=== PATIENT | female | born 1985 | race Caucasian/White ===

== ENCOUNTER 2017-09-15 10:27 | Emergency (ER) | payer OTHER ==
[2017-09-15 10:32] VITALS: BP 111/71
--- NOTE | 2017-09-15 11:03 | ER Document Report ---
HPI - HPI Pain Level: 3 Notes: Patient is a 32-year-old female who presents the ED complaining of nasal congestion/discharge, sinus pressure, sinus headache, rt ear pain, sore throat, right ear pain, postnasal drip 1 week. Patient states that she has had intermittent nausea over the last day. Patient states that she is still eating and drinking, but does have a decreased appetite. Patient has been using over- the-counter meds with minimal relief. Patient still urinating normally and having normal bowel movements. Denies any fever, head injury, neck pain, changes in vision/speech/mentation/hearing, chest pain, palpitations, syncope, cough, shortness of breath, wheeze, dyspnea, abdominal pain, vomiting/diarrhea, urinary retention, dysuria, hematuria, vaginal discharge/odor/bleeding, or rash. - ROS Notes: REVIEW OF SYSTEMS: CONSTITUTIONAL : Denies fever, chills, or sweats. Denies recent illness. EENT: see hpi CARDIOVASCULAR: Denies chest pain. Denies palpitations or racing or irregular heart beat. Denies ankle edema. RESPIRATORY: Denies cough, cold, or chest congestion. Denies shortness of breath, difficulty breathing, or wheezing. GASTROINTESTINAL: Denies abdominal pain or distention. Denies nausea, vomiting , or diarrhea. GENITOURINARY: Denies difficulty urinating, painful urination, burning, frequency, blood in urine, or discharge. MUSCULOSKELETAL: Denies back or neck pain or stiffness. Denies joint pain or swelling. SKIN: Denies rash, lesions or sores. NEUROLOGICAL: Denies confusion or altered mental status. Denies passing out or loss of consciousness. Denies dizziness or lightheadedness. Denies headache. Denies weakness or paralysis or loss of use of either side. Denies problems with gait or speech. Denies sensory loss, numbness, or tingling. ALL OTHER SYSTEMS REVIEWED AND NEGATIVE. Dictation was performed using [email or web address] voice recognition software Past Medical History - Social History Smoking Status: Never Smoker Family History: Reviewed & Not Pertinent Vertical Provider Document - CONSTITUTIONAL Agree With Documented VS: Yes Notes: PHYSICAL EXAMINATION: GENERAL: Well-appearing, well-nourished and in no acute distress. A&Ox4 HEAD: Atraumatic, normocephalic. EYES: Pupils equal round and reactive to light, extraocular movements intact, sclera anicteric, conjunctiva are normal. ENT: EAC clear b/l. Rt TM erythemic, mild bulging. Lt TM wnl. Nares patent and with yellow discharge, mild erythema. oropharynx clear without exudates. 2 + tonsilar hypertrophy with erythema, scant exudate. Moist mucous membranes. No sinus tenderness. NECK: Normal range of motion, supple without lymphadenopathy. No rigidity/ meningismus. LUNGS: Breath sounds clear to auscultation bilaterally and equal. No wheezes rales or rhonchi. HEART: Regular rate and rhythm without murmurs, rubs, gallops. ABDOMEN: Soft, nontender, nondistended abdomen. No guarding, no rebound. No masses appreciated. Normal bowel sounds present. No CVA tenderness bilaterally. Extremities: No cyanosis, clubbing, or edema b/l. Peripheral pulses 2+. Capillary refill less than 3 seconds. NEUROLOGICAL: Cranial nerves grossly intact. Normal speech, normal gait. Normal sensory, motor exams PSYCH: Normal mood, normal affect. SKIN: Warm, Dry, normal turgor, no rashes or lesions noted. - INFECTION CONTROL TRAVEL OUTSIDE OF THE [place] IN LAST 30 DAYS: No - RESPIRATORY O2 Sat by Pulse Oximetry: 100 Course - Re-evaluation Re-evalutation: 09/15/17 11:01 Patient is an afebrile, well-hydrated, 32-year-old female who presents the ED with acute otitis media of the right ear, acute sinusitis, and possible strep pharyngitis. Vitals are stable. PE is otherwise unremarkable at this time. Testing is beyond time for rapid influenza. I will not test for strep as I will be covering based on her otitis media and sinusitis with Augmentin. Low suspicion for any systemic emergent condition at this time. Recommend conservative measures for symptoms. Recheck with your PCM in 3-5 days. Return to the ED with any worsening/concerning symptoms otherwise as reviewed in discharge. Patient is in agreement. - Vital Signs Vital signs: Temp Pulse Resp BP Pulse Ox 98.4 F 96 14 111/71 100 09/15/17 10:31 09/15/17 10:31 09/15/17 10:31 09/15/17 10:31 09/15/17 10:31 Discharge - Discharge Clinical Impression: Acute right otitis media Acute sinusitis Qualifiers: Sinusitis location: maxillary Recurrence: non-recurrent Qualified Code(s): J01.00 - Acute maxillary sinusitis, unspecified Acute pharyngitis Qualifiers: Pharyngitis/tonsillitis etiology: unspecified etiology Qualified Code(s): J02.9 - Acute pharyngitis, unspecified Condition: Stable Disposition: HOME, SELF-CARE Instructions: Otitis Media ([facility]), Sinusitis ([facility]), Sore Throat ([facility]), Augmentin ([facility]) Additional Instructions: Maintain adequate fluid intake Take meds as directed Salt water gargles, throat sprays, mouthwash rinse, peroxide gargles tylenol/ibuprofen as needed New toothbrush tomorrow evening over the counter cold medication as needed for symptoms F/u: with your PCM in 3-5 days for a recheck Consider consult with ENT for ongoing/worsening symptoms Return to the ED with any fever, worsening pain, chest pain, neck pain/stiffness , shortness of breath, cough, drooling, trouble swallowing/breathing, abdominal pain, n/v/d, rash, or worsening/concerning symptoms otherwise. Prescriptions: Amox Tr/Potassium Clavulanate [Augmentin 875-125 Tablet] 1 tab PO BID 10 Days # 20 tablet Referrals: [facility] [Provider Group] - Follow up as needed [facility] [Provider Group] - Follow up as needed
== END 2017-09-15 11:48 | disposition home or self-care (01) ==
LOC: ER 10:27
DX: J01.00 Acute maxillary sinusitis, unspecified (principal); J02.9 Acute pharyngitis, unspecified; H66.91 Otitis media, unspecified, right ear; R11.0 Nausea; R63.0 Anorexia; R09.82 Postnasal drip; R51 Headache
CPT/HCPCS: 99283

== ENCOUNTER 2017-10-08 11:30 | Emergency (ER) | payer OTHER ==
[2017-10-08] MEDS ORDERED: KETOROLAC TROMETHAMINE 60 MG/2 ML SDV IM ONE (11:46)
--- NOTE | 2017-10-08 11:53 | ER Document Report ---
ED GI/ - General Chief Complaint: Abdominal Pain Stated Complaint: ABDOMINAL PAIN Time Seen by Provider: 10/08/17 11:38 TRAVEL OUTSIDE OF THE [place] IN LAST 30 DAYS: No - HPI Notes: 10/08/17 11:48 32 years old female presents today with diffuse abdominal pain and left flank pain and left lower quadrant pain for the last few days. She was diagnosed with constipation earlier and asked to take [id number] stool softeners. Which she took and developed watery stools. But did not have any solid stool for a long time. Denies any nausea or vomiting. Denies any fever chills denies any dysuria frequency urgency. Denies any other delusional symptoms. - Related Data Allergies/Adverse Reactions: azithromycin Allergy (Verified 10/08/17 12:04) cefdinir Allergy (Verified 10/08/17 12:04) fluticasone [From Flonase] Allergy (Verified 10/08/17 12:04) Past Medical History - General Information source: Patient - Social History Smoking Status: Never Smoker Family History: Reviewed & Not Pertinent - Immunizations Hx Diphtheria, Pertussis, Tetanus Vaccination: Yes Review of Systems - Review of Systems Constitutional: No symptoms reported. denies: See HPI, Chills, Diaphoresis, Fever, Malaise, Weakness, Other, Weight gain, Weight loss, Recent illness EENT: denies: No symptoms reported, See HPI, Eye pain, Eye discharge, Blurred vision, Tearing, Double vision, Ear pain, Ear discharge, Nose pain, Nose congestion, Nose discharge, Sinus pressure, Sinus discharge, Throat pain, Difficulty swallowing, Throat swelling, Mouth pain, Mouth swelling, Dental problem, Vertigo, Other Cardiovascular: No symptoms reported. denies: See HPI, Chest pain, Palpitations , Heart racing, Orthopnea, Dyspnea, Syncope, Dizziness, Lightheaded, Edema, Other, Paroxysmal Nocturnal Dysp Respiratory: No symptoms reported. denies: See HPI, Cough, Hurts to breathe, Hemoptysis, Short of breath, Sputum, Stridor, Wheezing, Other Gastrointestinal: See HPI, Abdominal pain Genitourinary: No symptoms reported. denies: See HPI, Burning, Dysuria, Discharge, Frequency, Flank pain, Hematuria, Incontinence, Pain, Urgency, Retention, Other Female Genitourinary: No symptoms reported. denies: See HPI, Last menstrual period, , Post menopausal, Heavy/abnormal periods, Irregular period, Vaginal bleeding, Vaginal discharge, Vaginal odor, Painful intercourse, Other Physical Exam - Vital signs Vitals: Temp Pulse Resp BP Pulse Ox 98.1 F 107 H 18 131/72 H 99 10/08/17 11:40 10/08/17 11:40 10/08/17 11:40 10/08/17 11:40 10/08/17 11:40 - Notes Notes: General exam: Alert oriented 3, appears well, not in any acute distress, body habitus------. HEENT: Normocephalic atraumatic pupils were equal reactive to light extraocular muscles were within normal range. Neck is supple no JVD no lymphadenopathy. Oral mucosa-not erythematous, no lesions noted no tonsillar enlargement. Chest no lesions, nontraumatic, nontender. No deformity Lungs: Bilaterally clear breath sounds no rales or wheezing, no adventitial sounds, no dullness on percussion. Cardiovascular system: Normal S1-S2 no murmurs, no gallop. Regular rhythm. No peripheral edema over the lower extremities. Gastrointestinal: Normal appearance, diffuse mild tenderness throughout the abdomen more so on the left lower quadrant. No rebound tenderness or guarding. Positive bowel sounds in all 4 quadrants, no Hepatosplenomegaly, no obvious masses, no obvious abdominal bruit. No horseshoe dullness. Inguinal region: No masses or obvious inguinal hernia noted Genitourinary: Rectal exam: Nervous system: Alert oriented 3, no cranial nerve weakness, no focal neurological deficit noted. Sensation is intact over the lower extremities for pain and touch. Reflexes are 2+ over both patella. Upper extremities: No trauma as noted, normal range of motion for both shoulders , elbows and wrist. Lower extremity: No traumas or deformities noted, normal range of motion for flexion extension abduction abduction of both hip joints, Normal flexion and extension of knee joint. Normal range of motion for plantarflexion dorsiflexion and eversion inversion for both ankles. Skin: No erythema, no edema, no obvious lesions noted Course - Vital Signs Vital signs: Temp Pulse Resp BP Pulse Ox 98.3 F 83 16 119/95 H 98 10/08/17 15:43 10/08/17 15:43 10/08/17 15:43 10/08/17 15:43 10/08/17 15:43 - Laboratory Result Diagrams: 10/08/17 12:35 Laboratory results interpreted by me: 10/08/17 11:55 Urine Blood SMALL H Discharge - Discharge Clinical Impression: Constipation by delayed colonic transit Abdominal pain Qualifiers: Abdominal location: left lower quadrant Qualified Code(s): R10.32 - Left lower quadrant pain Condition: Fair Instructions: Abdominal Pain ([facility]), Bulk Laxatives Prescriptions: Lubiprostone [Amitiza 24 Mcg Capsule] 24 mcg PO DAILY #60 capsule
[2017-10-08 12:20] LABS: APPEARANCE,URINE SLIGHTLY-CLOUDY; BILIRUBIN,URINE NEGATIVE (NEGATIVE); GLUCOSE, URINE NEGATIVE (NEGATIVE); KETONES,URINE NEGATIVE (NEGATIVE); LEUKOCYTE ESTERASE,URINE NEGATIVE (NEGATIVE); NITRITE,URINE NEGATIVE (NEGATIVE); PROTEIN,URINE NEGATIVE (NEGATIVE); URINE SPECIFIC GRAVITY 1.014; UROBILINOGEN,URINE NEGATIVE mg/dL (<2.0)
--- NOTE | 2017-10-08 12:22 | RADIOLOGY REPORT (SQ) ---
EXAM DESCRIPTION: KUB/ABDOMEN (SINGLE VIEW) COMPLETED DATE/TIME: 10/08/2017 12:11 pm REASON FOR STUDY: Abdominal pain COMPARISON: None. NUMBER OF VIEWS: One view. TECHNIQUE: Supine radiographic image of the abdomen acquired. LIMITATIONS: None. FINDINGS: BOWEL GAS PATTERN: Normal bowel gas pattern. No dilated loops. CALCIFICATIONS: No suspicious calcifications. SOFT TISSUES: No gross mass or suggestion of organomegaly. HARDWARE: Surgical clips. BONES: No acute fracture. No worrisome bone lesions. OTHER: No other significant finding. IMPRESSION: NO RADIOGRAPHIC EVIDENCE FOR ACUTE ABDOMINAL DISEASE. TECHNICAL DOCUMENTATION: JOB ID: [id number] [employer]- All Rights Reserved
[2017-10-08 12:43] LABS: HEMATOCRIT 39.1 % (36.0-47.0); HEMOGLOBIN 13.3 g/dL (12.0-15.5); HGB HCT DIFFERENCE 0.8; MEAN CORPUSCULAR HEMOGLOBIN 29.5 pg (27.0-33.4); MEAN CORPUSCULAR HGB CONC 33.9 g/dL (32.0-36.0); MEAN CORPUSCULAR VOLUME 87 fl (80-97); RED BLOOD COUNT 4.51 10^6/uL (3.72-5.28); RED CELL DISTRIBUTION WIDTH 13.2 % (11.5-14.0); WHITE BLOOD COUNT 10.1 10^3/uL (4.0-10.5)
[2017-10-08 15:45] VITALS: BP 119/95
== END 2017-10-08 16:12 | disposition home or self-care (01) ==
LOC: ER 11:30
DX: K59.01 Slow transit constipation (principal); R10.32 Left lower quadrant pain
CPT/HCPCS: 99284; 96372; 36415; 85027; 81025; 81001; 74000; J1885

== ENCOUNTER → 2017-11-11 | Outpatient (CLI) | payer OTHER ==
--- NOTE | 2017-11-12 17:23 | WOMENS IMAGING REPORT ---
EXAM DESCRIPTION: BILAT DIAGNOSTIC MAMMO W/CAD; U/S BREAST UNILAT LIMITED COMPLETED DATE/TIME: 11/11/2017 1:06 pm; 11/11/2017 2:27 pm REASON FOR STUDY: LUMP IN LEFT BREAST; LEFT BREAST PALP N63.20 UNSPECIFIED LUMP IN THE LEFT BREAST, UNSPECIFIED QUAD COMPARISON: Baseline study TECHNIQUE: Standard craniocaudal and mediolateral oblique views of each breast recorded using digita l acquisition. Additional left breast 90 mediolateral view, cone compression left breast 12 o'clock position. Left breast ultrasound was also performed. LIMITATIONS: None. FINDINGS: RIGHT BREAST MASSES: No suspicious masses. CALCIFICATIONS: No new or suspicious calcifications. ARCHITECTURAL DISTORTION: None. DEVELOPING DENSITY: None. ASYMMETRY: None noted. OTHER: No other significant findings. LEFT BREAST MASSES: No suspicious masses. CALCIFICATIONS: No new or suspicious calcifications. ARCHITECTURAL DISTORTION: None. DEVELOPING DENSITY: None. ASYMMETRY: None noted. OTHER: No other significant finding. Read with the assistance of CAD: .[facility] - R2 Cenova Version 1.3 .[facility] - R2 Cenova Version 1.3 .[facility] - R2 Cenova Version 2.4 .[facility] - R2 Cenova Version 2.4 .[facility] - R2 Early Childhood Version 9.2 Left breast ultrasound: Patient has a questionable palpable abnormality at the 12 o'clock position left breast. Ultrasound o f the upper half left breast demonstrates no discrete cystic or solid lesions. No focal findings. N o worrisome acoustic absorption. IMPRESSION: No mammographic evidence for malignancy right breast. No mammographic or sonographic evidence for malignancy left breast. BREAST DENSITY: c. The breasts are heterogeneously dense, which may obscure small masses. BIRAD: 1 Negative. RECOMMENDATION: RECOMMENDED FOLLOW UP: Please begin bilateral screening tomosynthesis at age 40, or sooner if patient has an increased lifetime risk of breast cancer based on the Maria Eugenia model assessment. SPECIFIC INTERVENTION/IMAGING/CONSULTATION RECOMMENDED:No additional intervention/ imaging/consultati on needed at this time. COMMUNICATION:Patient was notified by letter COMMENT: The patient has been notified of the results by letter per SA requirements. Additional no tification policies are in place for contacting patient with suspicious or incomplete findings. Quality ID #[id number]: The [employer] recommends an annual screening mammogram for women aged 40 years or over. This facility utilizes a reminder system to ensure that all patients receive reminder letters, and/or direct phone calls for appointments. This includes reminders for routine scr eening mammograms, diagnostic mammograms, or other Breast Imaging Interventions when appropriate. Th is patient will be placed in the appropriate reminder system. The [employer] (ACR) has developed recommendations for screening MRI of the breast s in certain patient populations, to be used in conjunction with mammography. Breast MRI surveillanc e may be appropriate for women with more than 20% lifetime risk of developing breast cancer as deter mined by genetic testing, significant family history of the disease, or history of mantle radiation f or Hodgkins Disease. ACR Practice Guidelines 2008. TECHNICAL DOCUMENTATION: FINDING NUMBER: (1) ASSESSMENT: (1) JOB ID: [id number] [employer]- All Rights Reserved
--- NOTE | 2017-11-12 17:23 | WOMENS IMAGING REPORT ---
EXAM DESCRIPTION: BILAT DIAGNOSTIC MAMMO W/CAD; U/S BREAST UNILAT LIMITED COMPLETED DATE/TIME: 11/11/2017 1:06 pm; 11/11/2017 2:27 pm REASON FOR STUDY: LUMP IN LEFT BREAST; LEFT BREAST PALP N63.20 UNSPECIFIED LUMP IN THE LEFT BREAST, UNSPECIFIED QUAD COMPARISON: Baseline study TECHNIQUE: Standard craniocaudal and mediolateral oblique views of each breast recorded using digita l acquisition. Additional left breast 90 mediolateral view, cone compression left breast 12 o'clock position. Left breast ultrasound was also performed. LIMITATIONS: None. FINDINGS: RIGHT BREAST MASSES: No suspicious masses. CALCIFICATIONS: No new or suspicious calcifications. ARCHITECTURAL DISTORTION: None. DEVELOPING DENSITY: None. ASYMMETRY: None noted. OTHER: No other significant findings. LEFT BREAST MASSES: No suspicious masses. CALCIFICATIONS: No new or suspicious calcifications. ARCHITECTURAL DISTORTION: None. DEVELOPING DENSITY: None. ASYMMETRY: None noted. OTHER: No other significant finding. Read with the assistance of CAD: .[facility] - R2 Cenova Version 1.3 .[facility] - R2 Cenova Version 1.3 .[facility] - R2 Cenova Version 2.4 .[facility] - R2 Cenova Version 2.4 .[facility] - R2 Fish Cleaner Machine Tender Version 9.2 Left breast ultrasound: Patient has a questionable palpable abnormality at the 12 o'clock position left breast. Ultrasound o f the upper half left breast demonstrates no discrete cystic or solid lesions. No focal findings. N o worrisome acoustic absorption. IMPRESSION: No mammographic evidence for malignancy right breast. No mammographic or sonographic evidence for malignancy left breast. BREAST DENSITY: c. The breasts are heterogeneously dense, which may obscure small masses. BIRAD: 1 Negative. RECOMMENDATION: RECOMMENDED FOLLOW UP: Please begin bilateral screening tomosynthesis at age 40, or sooner if patient has an increased lifetime risk of breast cancer based on the Maria Eugenia model assessment. SPECIFIC INTERVENTION/IMAGING/CONSULTATION RECOMMENDED:No additional intervention/ imaging/consultati on needed at this time. COMMUNICATION:Patient was notified by letter COMMENT: The patient has been notified of the results by letter per SA requirements. Additional no tification policies are in place for contacting patient with suspicious or incomplete findings. Quality ID #[id number]: The [employer] recommends an annual screening mammogram for women aged 40 years or over. This facility utilizes a reminder system to ensure that all patients receive reminder letters, and/or direct phone calls for appointments. This includes reminders for routine scr eening mammograms, diagnostic mammograms, or other Breast Imaging Interventions when appropriate. Th is patient will be placed in the appropriate reminder system. The [employer] (ACR) has developed recommendations for screening MRI of the breast s in certain patient populations, to be used in conjunction with mammography. Breast MRI surveillanc e may be appropriate for women with more than 20% lifetime risk of developing breast cancer as deter mined by genetic testing, significant family history of the disease, or history of mantle radiation f or Hodgkins Disease. ACR Practice Guidelines 2008. TECHNICAL DOCUMENTATION: FINDING NUMBER: (1) ASSESSMENT: (1) JOB ID: [id number] [employer]- All Rights Reserved
== END ==
LOC: WI 12:16
PROVIDERS: ATTEND Nurse Practitioner Family
DX: N63.20 Unspecified lump in the left breast, unspecified quadrant (principal)
CPT/HCPCS: 76642; 77066

== ENCOUNTER 2020-05-30 20:05 | Observation (INO) | payer OTHER ==
--- NOTE | 2020-05-30 21:08 | ER Document Report ---
ED General - General Chief Complaint: Probable Seizure Stated Complaint: SEIZURE LIKE ACTIVITY Time Seen by Provider: 05/30/20 20:55 Primary Care Provider: RAFAEL FORTE NP [Primary Care Provider] - Follow up as needed TRAVEL OUTSIDE OF THE [place] IN LAST 30 DAYS: No - HPI Notes: Chief complaint: Syncope History of present illness: 34-year-old 4 para [address] by Dr[address] Roddy Evans with [facility] for demise at approximately 9 weeks EGA and was in the process of miscarrying at home when she experienced a syncopal episode and had a few myoclonic jerks which her felt to represent a possible seizure. He called EMS and when they arrived her initial blood pressure was 80 over palp. They gave her a liter of normal saline and her blood pressure has normalized. At this time she has some mild abdominal cramping and says she has some persistent bleeding. We note that they had prescribed misoprostol for her but she has not taken any of this. She did take 2 Percocet tablets earlier today. Patient is had no complications with her other pregnancies otherwise in good health taking no regular medications. She is allergic to azithromycin cefdinir and fluticasone. - Related Data Allergies/Adverse Reactions: azithromycin Allergy (Verified 10/08/17 12:04) cefdinir Allergy (Verified 10/08/17 12:04) cefuroxime Allergy (Verified 05/31/20 01:38) ciprofloxacin Allergy (Verified 05/31/20 01:38) fluticasone [From Flonase] Allergy (Verified 10/08/17 12:04) Past Medical History - General Information source: Patient, Emergency Med Personnel, [facility] Records - Social History Smoking Status: Never Smoker Frequency of alcohol use: None Drug Abuse: None Lives with: Family Family History: Reviewed & Not Pertinent - Medical History Medical History: Negative Renal/ Medical History: Denies: Hx Peritoneal Dialysis Past Surgical History: Reports: Hx Cholecystectomy - Immunizations Hx Diphtheria, Pertussis, Tetanus Vaccination: Yes Review of Systems - Review of Systems Notes: Constitutional: Negative for fever. HENT: Negative for sore throat. Eyes: Negative for visual changes. Cardiovascular: Negative for chest pain. Respiratory: Negative for shortness of breath. Gastrointestinal: Negative for abdominal pain, vomiting or diarrhea. Genitourinary: As per HPI. Negative for dysuria. Musculoskeletal: Negative for back pain. Skin: Negative for rash. Neurological: As per HPI. Negative for headaches, focal weakness or numbness. 10 point ROS negative except as marked above and in HPI. Physical Exam - Vital signs Vitals: Temp 97 F L 05/30/20 20:05 - Notes Notes: GENERAL: Well-developed well-nourished appearing in no acute distress. SKIN: Cool moist and pale. Good turgor no rashes. HEAD: Normocephalic atraumatic. EYES: PERRLA. EOMI. Conjunctivae and sclerae clear. EARS: CANALS AND TMS CLEAR. NOSE: CLEAR. MOUTH: Moist mucosa. Good dentition. No stridor or edema. No drooling. NECK: Supple. No masses or thyromegaly. No adenopathy. Carotids 2+ without bruits. No JVD. BACK: Symmetrical without tenderness. CHEST: Respirations unlabored. Breath sounds clear and symmetrical. HEART: Regular rhythm. No murmur gallop or rub. ABDOMEN: Mild tenderness suprapubic area. Soft without masses, organomegaly or rebound. Bowel sounds normally active. No bruits. Pelvic: Small amount of dark blood in vaginal vault. Cervical os is fingertip dilated. Mild tenderness over uterus. EXTREMITIES: No edema. No calf tenderness. Cap refill less than 1.5 seconds. Dorsalis pedis and posterior tibial pulses 3+ and symmetrical. NEUROLOGICAL: GCS 15. Alert and oriented x3. Fluent speech. Cranial nerves II through XII intact. Sensorimotor and cerebellar normal. Normal tone. PSYCHIATRIC: Appropriate affect. Course - Re-evaluation Re-evalutation: 05/31/20 00:41 Ongoing small amount of vaginal bleeding. Blood pressure 150/68. Pulse is 77. Patient is complaining of a lot of cramping and discomfort. I have previously discussed findings with on-call TEST PREPARER, Dr. Walker who feels this patient may go home if she is hemodynamically stable. She suggested we send her to the office in the morning after we determine if she should have a D&C at that point. Patient still moderately uncomfortable. I am giving her some morphine for her cramping and some additional IV fluids. I will repeat a hemoglobin on her 3 hours after the first before we make further disposition. - Vital Signs Vital signs: Temp Pulse Resp BP Pulse Ox 97 F L 15 108/48 L 100 05/30/20 20:05 05/31/20 03:01 05/31/20 03:01 05/31/20 03:01 - Laboratory Result Diagrams: 05/31/20 01:32 05/30/20 21:27 Laboratory results interpreted by me: 05/30/20 05/30/20 05/30/20 21:27 21:27 21:27 WBC 11.1 H RBC 3.13 L Hgb 9.2 L Hct 28.0 L Absolute Neuts (auto) 9.0 H Seg Neutrophils % 81.5 H PT 20.6 H Sodium 130.7 L Carbon Dioxide 17 L Creatinine 0.33 L Glucose 68 L Calcium 7.9 L Magnesium 1.2 L* 05/31/20 01:32 WBC 13.6 H RBC 3.39 L Hgb 10.2 L Hct 29.8 L Absolute Neuts (auto) 11.3 H Seg Neutrophils % 82.8 H PT Sodium Carbon Dioxide Creatinine Glucose Calcium Magnesium - EKG Interpretation by Me Additional EKG results interpreted by me: 05/31/20 00:19 Twelve-lead EKG from 2203 hrs. reviewed contemporaneously by me demonstrating a sinus tachycardia with a rate of 101. Normal QRS axis of +56 degrees. Normal intervals. No acute ST/T wave changes. Indication for current study: Possible seizure. Discharge - Discharge Clinical Impression: demise with miscarriage 9 weeks EG Condition: Stable Disposition: ADMITTED INPATIENT Admitting Provider: [facility] - Dr. Walker Referrals: RAFAEL FORTE NP [Primary Care Provider] - Follow up as needed
[2020-05-30 21:32] LABS: ABSOLUTE EOSINOPHILS # (AUTO) 0.1 10^3/uL (0.0-0.6); ABSOLUTE LYMPHOCYTES (AUTO) 1.5 10^3/uL (0.5-4.7); ABSOLUTE MONOCYTES (AUTO) 0.5 10^3/uL (0.1-1.4); BASOPHILS % (AUTO) 0.3 % (0-2); EOSINOPHILS % (AUTO) 0.6 % (0-6); HEMOGLOBIN 9.2 g/dL (12.0-15.5); LYMPHOCYTES % (AUTO) 13.1 % (13-45); MEAN CORPUSCULAR HEMOGLOBIN 29.5 pg (27.0-33.4); MEAN CORPUSCULAR VOLUME 90 fl (80-97); MONOCYTES % (AUTO) 4.5 % (3-13); PLATELET COUNT 247 10^3/uL (150-450); RED BLOOD COUNT 3.13 10^6/uL (3.72-5.28); RED CELL DISTRIBUTION WIDTH 13.2 % (11.5-14.0); SEGMENTED NEUTROPHILS % (AUTO) 81.5 % (42-78); TOTAL CELLS COUNTED % (AUTO) 100 %; WHITE BLOOD COUNT 11.1 10^3/uL (4.0-10.5)
[2020-05-30 21:38] LABS: INTERNATIONAL RATION (INR) 1.75; PROTHROMBIN TIME 20.6 SEC (11.4-15.4)
[2020-05-30 21:39] LABS: PARTIAL THROMBOPLASTIN TIME 31.9 SEC (23.5-35.8)
[2020-05-30 21:43] LABS: ANION GAP 9 (5-19); BLOOD UREA NITROGEN 8 mg/dL (7-20); CALCIUM 7.9 mg/dL (8.4-10.2); CARBON DIOXIDE 17 mmol/L (22-30); CHLORIDE 105 mmol/L (98-107); POTASSIUM 4.1 mmol/L (3.6-5.0)
[2020-05-30 22:00] LABS: GLUCOSE 68 mg/dL (75-110)
--- NOTE | 2020-05-30 22:15 | RADIOLOGY REPORT (SQ) ---
EXAM DESCRIPTION: US LESS THAN 14 WEEKS COMPLETED DATE/TME: 05/30/2020 20:54 CLINICAL HISTORY: 34 years, Female, retained POC COMPARISON: None. TECHNIQUE: Axial 2-D grayscale images of the pelvis were acquired. Doppler was utilized. LIMITATIONS: Patient refused transvaginal imaging secondary to heavy bleeding.. FINDINGS: Uterus measures 10.5 x 6.4 x 4.5 cm in size. Cervix is closed, measuring 2.5 cm in length. The endometrium appears diffusely heterogenous in echogenicity with a more focal hypoechoic area measuring 3.2 x 2.6 x 1.6 cm in size. This area demonstrates increased vascularity. No intrauterine is identified. Right ovary measures 2.9 x 1.6 x 1.8 cm in size. It demonstrates Doppler flow. Left ovary measures 1.7 x 2.9 x 1.6 cm in size. It also demonstrates elements of Doppler flow. No significant free fluid is identified within the imaged pelvis. IMPRESSION: No intrauterine identified. Instead, the endometrium appears diffusely heterogenous in echogenicity with a more focal hypoechoic area measuring 3.2 x 2.6 x 1.6 cm in size demonstrating vascularity, compatible with retained products of conception. copyright 2010 [email or web address]- All Rights Reserved
[2020-05-30] MEDS: NORMAL SALINE 1000 ML 1,000 ML IV PRN (22:17)
[2020-05-30] MEDS: MAGNESIUM SULFATE/D5W 1 GM/100 ML RTUPB IV SCH (22:52)
[2020-05-31] MEDS ORDERED: ONDANSETRON HCL INJ/PF 4 MG/2 ML SDV IV ONE (00:11)
[2020-05-31] MEDS ORDERED: MORPHINE SULFATE 10 MG/ML INJ IV ONE ×2 (00:22→02:42)
[2020-05-31] MEDS: NORMAL SALINE 1000 ML 1,000 ML IV PRN (01:35)
[2020-05-31] MEDS: MAGNESIUM SULFATE/D5W 1 GM/100 ML RTUPB IV SCH (01:35)
[2020-05-31 01:54] LABS: ABSOLUTE BASOPHILS # (AUTO) 0.1 10^3/uL (0.0-0.2); ABSOLUTE LYMPHOCYTES (AUTO) 1.8 10^3/uL (0.5-4.7); ABSOLUTE MONOCYTES (AUTO) 0.5 10^3/uL (0.1-1.4); ABSOLUTE NEUT (AUTO) 11.3 10^3/uL (1.7-8.2); BASOPHILS % (AUTO) 0.4 % (0-2); EOSINOPHILS % (AUTO) 0.3 % (0-6); HEMATOCRIT 29.8 % (36.0-47.0); HEMOGLOBIN 10.2 g/dL (12.0-15.5); LYMPHOCYTES % (AUTO) 13.1 % (13-45); MEAN CORPUSCULAR HEMOGLOBIN 30.1 pg (27.0-33.4); MEAN CORPUSCULAR HGB CONC 34.2 g/dL (32.0-36.0); MEAN CORPUSCULAR VOLUME 88 fl (80-97); MONOCYTES % (AUTO) 3.4 % (3-13); PLATELET COUNT 305 10^3/uL (150-450); RED BLOOD COUNT 3.39 10^6/uL (3.72-5.28); RED CELL DISTRIBUTION WIDTH 12.8 % (11.5-14.0); SEGMENTED NEUTROPHILS % (AUTO) 82.8 % (42-78); TOTAL CELLS COUNTED % (AUTO) 100 %; WHITE BLOOD COUNT 13.6 10^3/uL (4.0-10.5)
[2020-05-31] MEDS ORDERED: RINGERS SOLUTION,LACTATED 1,000 ML IV PRN (04:38)
--- NOTE | 2020-05-31 05:02 | PDOC H&P ---
History of Present Illness Admission Date/PCP: 05/31/20 04:42 RAFAEL FORTE NP Patient complains of: miscarriage, incomplete History of Present Illness: ROSE MARY ROMERO is a 34 year old female now with early SAB, incomplete. She was seen by provider in the office on 05/29/2020 and offered cytotec vs D&C. She decided on cytotec but since she started having bleeding on Thursday evening she decided to not take the cyctotec. SHe had cramping and bleeding thursday evening and througout the night then it stopped on thursday am and she was supposed to go to the office this am for f/u and US. She had severe abd pain and increased bleeding last night and reports syncopal episode last night. SHe presented to the ER and after IV fluid hydration felt better and stable VS and labs and minimal bleeding. She reports that after 2nd dose of IV morphine that she had a very large clot and pain again. Past Medical History Gynecological Infection: No 3 Delivery: Spontaneous Vaginal Delivery Past Surgical History Past Surgical History: Reports: Cholecystectomy Social History Lives with: Family Smoking Status: Never Smoker Electronic Cigarette use?: No Frequency of Alcohol Use: None Hx Recreational Drug Use: No Drugs: None Hx Prescription Drug Abuse: No - Advance Directive Resuscitation Status: Full Code Family History Family History: Reviewed & Not Pertinent Parental Family History Reviewed: No Children Family History Reviewed: NA Sibling(s) Family History Reviewed.: NA Medication/Allergy Home Medications: Amox Tr/Potassium Clavulanate [Augmentin 875-125 Tablet] 1 tab PO BID 10 Days #20 tablet 09/15/17 Fluconazole [Diflucan] 150 mg PO ONCE PRN #1 tablet 09/15/17 Lubiprostone [Amitiza 24 Mcg Capsule] 24 mcg PO DAILY #60 capsule 10/08/17 Allergies/Adverse Reactions: azithromycin Allergy (Verified 10/08/17 12:04) cefdinir Allergy (Verified 10/08/17 12:04) cefuroxime Allergy (Verified 05/31/20 01:38) ciprofloxacin Allergy (Verified 05/31/20 01:38) fluticasone [From Flonase] Allergy (Verified 10/08/17 12:04) Review of Systems Constitutional: ABSENT: chills, fever(s), headache(s), weight gain, weight loss Cardiovascular: ABSENT: chest pain, dyspnea on exertion, edema, orthropnea, palpitations Respiratory: ABSENT: cough, hemoptysis Gastrointestinal: ABSENT: abdominal pain, constipation, diarrhea, hematemesis, hematochezia, nausea, vomiting Neurological: ABSENT: abnormal gait, abnormal speech, confusion, dizziness, focal weakness, syncope Physical Exam - Physical Exam Vital Signs: Temp Pulse Resp BP Pulse Ox 97 F L 15 108/48 L 100 05/30/20 20:05 05/31/20 03:01 05/31/20 03:01 05/31/20 03:01 Intake & Output 05/29/20 05/30/20 05/31/20 06:59 06:59 06:59 Intake Total 2200 Balance 2200 Weight 87.09 kg General appearance: PRESENT: no acute distress, well-developed, well-nourished Head exam: PRESENT: atraumatic, normocephalic Neck exam: PRESENT: full ROM. ABSENT: carotid bruit, JVD, lymphadenopathy, thyromegaly Cardiovascular exam: PRESENT: RRR. ABSENT: diastolic murmur, rubs, systolic murmur Pulses: PRESENT: normal dorsalis pedis pul, +2 pedal pulses bilateral Vascular exam: PRESENT: normal capillary refill GI/Abdominal exam: PRESENT: normal bowel sounds, soft, tenderness - minimal ttp on palpation of uterus. ABSENT: distended, guarding, mass, organolmegaly, rebound Rectal exam: PRESENT: deferred Extremities exam: PRESENT: full ROM. ABSENT: calf tenderness, clubbing, pedal edema Neurological exam: PRESENT: alert, awake, oriented to person, oriented to place, oriented to time, oriented to situation, CN II-XII grossly intact. ABSENT: motor sensory deficit Psychiatric exam: PRESENT: appropriate affect, normal mood. ABSENT: homicidal ideation, suicidal ideation Result Laboratory Results: 05/31/20 01:32 05/30/20 21:27 05/30/20 05/30/20 05/30/20 20:23 21:27 21:27 WBC 11.1 H RBC 3.13 L Hgb 9.2 L Hct 28.0 L MCV 90 MCH 29.5 MCHC 33.0 RDW 13.2 Plt Count 247 Seg Neutrophils % 81.5 H Sodium 130.7 L Potassium 4.1 Chloride 105 Carbon Dioxide 17 L Anion Gap 9 BUN 8 Creatinine 0.33 L Est GFR ( Amer) > 60 Glucose 68 L Calcium 7.9 L Magnesium 1.2 L* Blood Type A POSITIVE 05/31/20 01:32 WBC 13.6 H RBC 3.39 L Hgb 10.2 L Hct 29.8 L MCV 88 MCH 30.1 MCHC 34.2 RDW 12.8 Plt Count 305 Seg Neutrophils % 82.8 H Sodium Potassium Chloride Carbon Dioxide Anion Gap BUN Creatinine Est GFR ( Amer) Glucose Calcium Magnesium Blood Type Impressions: Obstetrics Ultrasound 05/30/20 20:54 IMPRESSION: No intrauterine identified. Instead, the endometrium appears diffusely heterogenous in echogenicity with a more focal hypoechoic area measuring 3.2 x 2.6 x 1.6 cm in size demonstrating vascularity, compatible with retained products of conception. copyright 2010 [employer]- All Rights Reserved Status: Imported from PACS Assessment & Plan - Diagnosis (1) Incomplete Is this a current diagnosis for this admission?: Yes Plan: Pt desires D&C. however, she is stable. No emergent need for D&C. They are declining to go home and have surgery scheduled as an outpatient. Hb/Hct stable and bleeding is minimal per ER doc and cvx closed. advised admission since they are declining discharge at 0318. I called patient RN to find out when she would be coming to the floor at 0450 since it appeared she had not been bed boarded yet. They stated the bed board just came through and will call report as soon as they can. as patient is currently stable the OR will require a COVID test prior to proceeding to OR. Unfortunately, there is no rapid tests in the hospital and unless patient status changes will likely need to wait on COVID results. Upon arrival to floor after 0530 patient updated on status of surgrical availability for non emergent surgery and she would like to have an US and see if the large clot and pain she had after the morphine 2nd dose. Will repeat labs and get BHCG. Rh positive per [facility]. If still retained products on US then she would like to have trial of cytotec before proceeding with surgery. Still currently stable. Provide pain management Mild leukocytosis - doxy ordered. - Time Time Spent: 30 to 50 Minutes Smoking Cessation Education: 3 to 10 minutes Medications reviewed and adjusted accordingly: Yes Anticipated Discharge Disposition: Home, Self Care Anticipated Discharge Timeframe: within 24 hours - Inpatient Certification Based on my medical assessment, after consideration of the patient's comorbidities, presenting symptoms, or acuity I expect that the services needed warrant INPATIENT care.: Yes I certify that my determination is in accordance with my understanding of Medicare's requirements for reasonable and necessary INPATIENT services [42 CFR 412.3e].: Yes Medical Necessity: Need For IV Fluids, Need for Pain Control, Need for IV Antibiotics, Need for Surgery
[2020-05-31] MEDS ORDERED: HYDROMORPHONE HCL INJ/PF 2 MG/ML AMPULE IV PRN (07:11)
[2020-05-31 07:27] LABS: HEMOGLOBIN 8.9 g/dL (12.0-15.5); MEAN CORPUSCULAR HEMOGLOBIN 30.2 pg (27.0-33.4); MEAN CORPUSCULAR HGB CONC 34.4 g/dL (32.0-36.0); MEAN CORPUSCULAR VOLUME 88 fl (80-97); PLATELET COUNT 253 10^3/uL (150-450); RED BLOOD COUNT 2.96 10^6/uL (3.72-5.28); RED CELL DISTRIBUTION WIDTH 12.9 % (11.5-14.0); WHITE BLOOD COUNT 9.6 10^3/uL (4.0-10.5)
[2020-05-31] MEDS ORDERED: DOXYCYCLINE HYCLATE 100 MG TABLET PO SCH (10:00)
[2020-05-31] MEDS ORDERED: ACETAMINOPHEN 325 MG TABLET PO PRN (10:22)
[2020-05-31 11:36] LABS: CHLAM PCR NOT DETECTED (NOT DETECT)
--- NOTE | 2020-05-31 12:45 | RADIOLOGY REPORT (SQ) ---
EXAM DESCRIPTION: U/S NON OB PEL W/DOPPLER IMAGES COMPLETED DATE/TIME: 05/31/2020 12:33 pm REASON FOR STUDY: eval for retained products COMPARISON: None. TECHNIQUE: Dynamic and static grayscale images acquired of the pelvis via transabdominal approach an d recorded on PACS. Additional selected color Doppler and spectral images recorded. LIMITATIONS: None. FINDINGS: UTERUS: Contour normal. No mass. ENDOMETRIAL STRIPE: No focal or generalized thickening. No masses. CERVIX: No nabothian cysts. RIGHT OVARY AND DOPPLER: Normal size. No worrisome masses. Normal arterial vascular flow without evid ence for torsion. LEFT OVARY AND DOPPLER: Ovary not visualized. FREE FLUID: None noted. OTHER: No other significant finding. MEASUREMENTS: UTERUS: 10.4 x 7.3 x 5.4 cm ENDOMETRIAL STRIPE: 13 mm RIGHT OVARY: 2.8 x 1.4 x 2.3 cm. LEFT OVARY: Not visualized. IMPRESSION: No evidence of retained products. TECHNICAL DOCUMENTATION: JOB ID: [id number] 2010 [employer]- All Rights Reserved Rev-03/19 Reading location - IP/workstation name: [email or web address]
[2020-05-31] MEDS ORDERED: IBUPROFEN 800 MG TABLET PO PRN (14:18)
[2020-05-31] MEDS ORDERED: IBUPROFEN 800 MG TABLET ONE (14:20)
--- NOTE | 2020-05-31 14:47 | PDOC DISCHARGE SUMMARY ---
Impression - Admit/DC Date/PCP Admission Date/Primary Care Provider: 05/31/20 04:42 RAFAEL FORTE NP Discharge Date: 05/31/20 - Discharge Diagnosis (1) Complete Is this a current diagnosis for this admission?: Yes - Assessment Summary: The pt presents with an incomplete ab and during the course of admission has now passed the tissue. She is doing well and is ready to go home. - Additional Information Resuscitation Status: Full Code Discharge Diet: As Tolerated Discharge Activity: Activity As Tolerated, Pelvic Rest Referrals: RAFAEL FORTE NP [Primary Care Provider] - Follow up as needed Home Medications: Amox Tr/Potassium Clavulanate [Augmentin 875-125 mg Tablet] 1 tab PO BID 10 Days #20 tablet 09/15/17 Fluconazole [Diflucan] 150 mg PO ONCE PRN #1 tablet 09/15/17 Lubiprostone [Amitiza 24 Mcg Capsule] 24 mcg PO DAILY #60 capsule 10/08/17 History of Present Illiness History of Present Illness: ROSE MARY ROMERO is a 34 year old female Physical Exam - Physical Exam Vital Signs: Temp Pulse Resp BP Pulse Ox 97.8 F 99 16 109/72 100 05/31/20 11:02 05/31/20 11:02 05/31/20 11:02 05/31/20 11:02 05/31/20 11:02 Intake & Output 05/30/20 05/31/20 06/01/20 06:59 06:59 06:59 Intake Total 2200 Output Total 650 Balance 2200 -650 Weight 87.09 kg 87.09 kg Results Laboratory Results: WBC 9.6 10^3/uL (4.0-10.5) 05/31/20 07:00 RBC 2.96 10^6/uL (3.72-5.28) L 05/31/20 07:00 Hgb 8.9 g/dL (12.0-15.5) L 05/31/20 07:00 Hct 26.0 % (36.0-47.0) L 05/31/20 07:00 MCV 88 fl (80-97) 05/31/20 07:00 MCH 30.2 pg (27.0-33.4) 05/31/20 07:00 MCHC 34.4 g/dL (32.0-36.0) 05/31/20 07:00 RDW 12.9 % (11.5-14.0) 05/31/20 07:00 Plt Count 253 10^3/uL (150-450) 05/31/20 07:00 Lymph % (Auto) 13.1 % (13-45) 05/31/20 01:32 [place] % (Auto) 3.4 % (3-13) 05/31/20 01:32 Eos % (Auto) 0.3 % (0-6) 05/31/20 01:32 Baso % (Auto) 0.4 % (0-2) 05/31/20 01:32 Absolute Neuts (auto) 11.3 10^3/uL (1.7-8.2) H 05/31/20 01:32 Absolute Lymphs (auto) 1.8 10^3/uL (0.5-4.7) 05/31/20 01:32 Absolute Monos (auto) 0.5 10^3/uL (0.1-1.4) 05/31/20 01:32 Absolute Eos (auto) 0.0 10^3/uL (0.0-0.6) 05/31/20 01:32 Absolute Basos (auto) 0.1 10^3/uL (0.0-0.2) 05/31/20 01:32 Seg Neutrophils % 82.8 % (42-78) H 05/31/20 01:32 PT 20.6 SEC (11.4-15.4) H 05/30/20 21:27 INR 1.75 05/30/20 21:27 APTT 31.9 SEC (23.5-35.8) 05/30/20 21:27 Sodium 130.7 mmol/L (137-145) L 05/30/20 21:27 Potassium 4.1 mmol/L (3.6-5.0) 05/30/20 21:27 Chloride 105 mmol/L (98-107) 05/30/20 21:27 Carbon Dioxide 17 mmol/L (22-30) L 05/30/20 21:27 Anion Gap 9 (5-19) 05/30/20 21:27 BUN 8 mg/dL (7-20) 05/30/20 21:27 Creatinine 0.33 mg/dL (0.52-1.25) L 05/30/20 21:27 Est GFR ( Amer) > 60 (>60) 05/30/20 21:27 Est GFR (MDRD) Non-Af > 60 (>60) 05/30/20 21:27 Glucose 68 mg/dL (75-110) L 05/30/20 21:27 POC Glucose 108 mg/dL (70-110) 05/30/20 22:23 Calcium 7.9 mg/dL (8.4-10.2) L 05/30/20 21: Magnesium 1.2 mg/dL (1.6-2.3) L* 05/30/20 21:27 Beta HCG, Quant 328.43 mIU/mL (0.0-6.15) H 05/31/20 07:00 Total Beta HCG POSITIVE (NEGATIVE) 05/31/20 07:00 Chlamydia DNA (PCR) NOT DETECTED (NOT DETECT) 05/31/20 09:08 N.gonorrhoeae DNA (PCR) NOT DETECTED (NOT DETECT) 05/31/20 09:08 Blood Type A POSITIVE 05/30/20 20:23 Rhogam Indicated RHOGAM NOT INDICATED 05/30/20 20:23 Impressions: Obstetrics Ultrasound 05/30/20 20:54 IMPRESSION: No intrauterine identified. Instead, the endometrium appears diffusely heterogenous in echogenicity with a more focal hypoechoic area measuring 3.2 x 2.6 x 1.6 cm in size demonstrating vascularity, compatible with retained products of conception. copyright 2010 [employer]- All Rights Reserved Pelvis Ultrasound 05/31/20 06:37 IMPRESSION: No evidence of retained products. Stroke Is this a Stroke Patient?: No Acute Heart Failure - Is this a Heart Failure Patient?: No
[2020-05-31] MEDS ORDERED: FLUCONAZOLE 100 MG TABLET PO ONE (15:00)
[2020-05-31 15:08] VITALS: BP 104/53
--- NOTE | 2020-05-31 18:04 | EKG REPORT ---
SEVERITY:- OTHERWISE NORMAL ECG - SINUS TACHYCARDIA : Confirmed by: Pavithra Carranza MD 31-May-2020 18:02:19
== END 2020-05-31 19:29 | disposition home or self-care (01) ==
LOC: ER 20:05 → EH 05-31 04:42 → 2N 05-31 06:00
PROVIDERS: ADMIT Student in an Organized Health Care Education/Training Program; ATTEND Student in an Organized Health Care Education/Training Program
DX: O03.4 Incomplete spontaneous abortion without complication (principal); D72.829 Elevated white blood cell count, unspecified; Z88.1 Allergy status to other antibiotic agents; Z88.8 Allergy status to other drugs, medicaments and biological substances; Z03.818 Encounter for observation for suspected exposure to other biological agents ruled out; Z91.14 Patient's other noncompliance with medication regimen; Z90.49 Acquired absence of other specified parts of digestive tract
CPT/HCPCS: 93005; 96376; 99285; 96361; 96375; 96365; 96366; 86900; 86901; 36415 ×2; 82962; 84702; 83735; 85025 ×2; 85610; 85730; 87635; 80048; 87491; 87591; 76801; 76856; 93976; 93010; J2270; J3475 ×2; J2405; J7030 ×2; J7120; C9803